=== PATIENT | male | born 1990 | race Caucasian/White ===

== ENCOUNTER 2022-05-02 01:49 | Emergency (ER) | payer BC ==
[~2022-05-02] VITALS: Ht 177.8 cm; Wt 90.7 kg
[2022-05-02 02:01] VITALS: BP_SYST 175
--- NOTE | 2022-05-02 02:07 | NUR ---
Patient triaged, VS checked and patient appears in no acute distress at this time. Accompanied by , awaiting available bed, and MD notified of need for MSE.
--- NOTE | 2022-05-02 02:11 | NUR ---
Patient ambulatory to bed 1 for evaluation and treatment
--- NOTE | 2022-05-02 02:25 | NUR ---
Pt taken to CT for imaging.
--- NOTE | 2022-05-02 02:30 | NUR ---
Pt ambulatory from home due to L side facial numbness with onset of 3 pm. Per pt, he noticed a pressure like feeling to the back of his head prior to the facial numbness. Denies any N&V. Pt reports he tripped and fell about 2 weeks ago, but denies any other injury. Arrived to ED in no acute distress. No numbness to extremities.
--- NOTE | 2022-05-02 03:01 | NUR ---
ER at bedside examining patient.
[2022-05-02] MEDS ORDERED: MORPHINE 2 MG/ML INJ. SYRINGE IVP ONE (03:15)
[2022-05-02] MEDS ORDERED: LABETALOL 100 MG/ 20ML VIAL IVP ONE (03:15)
[2022-05-02] MEDS ORDERED: PROCHLORPERAZINE EDISYLATE 10 MG/2 ML VIAL IVP ONE (03:15)
[2022-05-02] MEDS ORDERED: ACYCLOVIR 400 MG TABLET PO SCH (03:40)
--- NOTE | 2022-05-02 03:40 | NUR ---
Medication administered as ordered.
[2022-05-02] MEDS ORDERED: predniSONE 20 MG TABLET PO ONE (03:45)
[2022-05-02 04:09] LABS: BILIRUBIN,URINE NEGATIVE (NEGATIVE); BLOOD, URINE NEGATIVE (NEGATIVE); CLARITY/URINE CLEAR (CLEAR); COLOR,URINE YELLOW (YELLOW); GLUCOSE,URINE NEGATIVE (NEGATIVE); KETONES,URINE NEGATIVE (NEGATIVE); LEUKOCYTE ESTERASE ,URINE NEGATIVE (NEGATIVE); NITRITE, URINE NEGATIVE (NEGATIVE); PROTEIN URINE NEGATIVE (NEGATIVE); UROBILINOGEN,URINE 0.2 (0.2-1.0)
[2022-05-02 04:12] LABS: CALCIUM 8.6 mg/dL (8.4-11.0); CREATININE 1.04 mg/dL (0.55-1.30); POTASSIUM 3.6 mmol/L (3.5-5.1)
[2022-05-02 04:31] LABS: BASOPHILS % (AUTO) 0.4 % (0.0-2.0); EOSINOPHILS % (AUTO) 0.7 % (0.0-4.0); HEMATOCRIT 46.9 % (36-54); HEMOGLOBIN 16.7 g/dL (14.0-18.0); LYMPHOCYTES # (AUTO) 1.8 K/uL (1.0-5.5); LYMPHOCYTES % (AUTO) 33.4 % (20.5-51.5); MEAN CORPUSCULAR HEMOGLOBIN 28 pg (27-31); MEAN CORPUSCULAR HGB CONC 36 % (32-36); MEAN CORPUSCULAR VOLUME 80 fL (79.0-98.0); MONOCYTES # (AUTO) 0.4 K/uL (0.0-1.0); NEUTROPHILS # (AUTO) 3.2 K/uL (1.8-7.7); NEUTROPHILS % (AUTO) 58.5 % (40.0-70.0); PLATELET COUNT (AUTO) 195 K/uL (130-430); RED BLOOD CELL COUNT(AUTO) 5.89 MIL/uL (4.2-6.2); RED CELL DISTRIBUTION WIDTH 13.8 % (9.0-15.0); WHITE BLOOD COUNT (AUTO) 5.5 K/uL (4.8-10.8)
[2022-05-02] MEDS ORDERED: PRED20TA PO (04:36)
[2022-05-02] MEDS ORDERED: [UNRECOGNIZED DRUG - CODE] PO (04:36)
[2022-05-02] MEDS ORDERED: ACYC400T19 PO (04:36)
[2022-05-02] MEDS ORDERED: LACEYEO OP (04:36)
[2022-05-02] MEDS ORDERED: amLODIPine BESYLATE 5 MG TABLET PO ONE (05:30)
--- NOTE | 2022-05-02 05:32 | NUR ---
Patient given written and verbal discharge instructions and verbalizes understanding. ER MD Santa discussed with patient the results and treatment provided. Patient in stable condition. ID arm band removed. IV catheter removed intact and dressing applied, no active bleeding. Rx sent to pharmacy of choice. Patient educated on pain management and to follow up with PMD. Pain Scale 0/10. Opportunity for questions provided and answered. Medication side effect fact sheet provided.
[2022-05-02 05:33] VITALS: BP_SYST 134
== END 2022-05-02 05:32 | disposition home or self-care (01) ==
LOC: SED 01:49
DX: G51.0 Bell's palsy (principal); I10 Essential (primary) hypertension; R20.2 Paresthesia of skin; Z79.899 Other long term (current) drug therapy
CPT/HCPCS: 99291; 96374; 70450; 96375; 80048; 85025; 36415; 93005; 76376; 81003; J7512; J3490; J0780; J2270